=== PATIENT | male | born 1975 | race Two or more races ===

== ENCOUNTER 2019-06-03 09:02 | Inpatient (IN) | payer BC, OTHER ==
[~2019-06-03] VITALS: Ht 182.9 cm; Wt 127.2 kg
[2019-06-03 10:10] LABS: Urine Bacteria NONE SEEN /hpf (None Seen); Urine Blood TRACE /uL (Negative); Urine Mucus FEW (None Seen); Urine Specific Gravity 1.024 (1.001-1.035); Urine WBC 2 /hpf (0 - 3)
[2019-06-03 10:12] LABS: Basophils # (auto) 0 uL; Basophils % (auto) 0.5 % (0.0-2.0); Eosinophils # (auto) 0.3 uL; Eosinophils % (auto) 4.4 % (0.0-7.0); Hematocrit 46.8 % (41.0-53.0); Hemoglobin 15.7 g/dL (13.5-17.5); Lymphocytes # (auto) 1.1 uL; Lymphocytes % (auto) 15.1 % (10.0-50.0); Mean Corpuscular Hemoglobin 27.2 pg (28.0-32.0); Mean Corpuscular Hgb Conc. 33.4 g/dL (32.0-36.0); Mean Corpuscular Volume 81.4 fL (80.0-100.0); Monocytes # (auto) 0.7 uL; Monocytes % (auto) 8.8 % (0.0-12.0); Neutrophils # (auto) 5.3 uL; Neutrophils % (auto) 71.2 % (37.0-80.0); Nucleated Red Blood Cells % 0.1 %; Platelet Count (auto) 307 10^3/uL (140-450); Red Blood Cells 5.76 10^6/uL (4.5-5.90); White Blood Cell 7.5 10^3/uL (4.4-10.8)
[2019-06-03 10:34] LABS: Albumin 3.9 g/dL (3.4-5.0); BUN/Creatinine Ratio 9.5; Calcium 8.8 mg/dL (8.5-10.1); Potassium 3.6 mmol/L (3.5-5.1)
[2019-06-03 10:37] LABS: Bilirubin, Total 0.6 mg/dL (0.2-1.0); Total Protein 8.2 g/dL (6.4-8.2)
[2019-06-03] MEDS ORDERED: PIPERACILLIN-TAZOB 3.375GM 100 ML IV ONE (12:15)
[2019-06-03] MEDS ORDERED: VANCOMYCIN 1GM/250ML 250 ML IV ONE (12:15)
[2019-06-03] MEDS ORDERED: ACETAMINOPHEN 325 MG TAB PO PRN (15:00)
[2019-06-03] MEDS ORDERED: MORPHINE SULF INJ 2 MG/ML SYRINGE 1ML IV PRN ×2 (15:00)
[2019-06-03] MEDS ORDERED: HYDROcodone-ACET 5/325MG TAB PO PRN (15:00)
[2019-06-03] MEDS ORDERED: NITROGLYCERIN 0.4 MG SL TAB SL PRN (15:00)
[2019-06-03] MEDS ORDERED: ONDANSETRON HCL 4 MG/2 ML VIAL IV PRN (15:00)
[2019-06-03] MEDS: SODIUM CHLORIDE 0.9% 1,000 ML IV SCH (15:11)
--- NOTE | 2019-06-03 15:58 | NUR ---
MS admit from ER BETZAIDA TORRES admitted to tele/MS after SBAR received. Patient oriented to Lisa Orozco primary RN, unit, room, bed, and unit policies regarding patient care and visiting hours. Patient weighed by bed scale and encouraged to call if they need something. All questions and concerns addressed, patient verbalized understanding. Instructed patient on POC, fall precautions and to call for assistance. Patient verbalized understanding. Fall precautions in place with bed in lowest locked position, x2 side rails up and call light within reach. Will continue to monitor q1hr & PRN.
--- NOTE | 2019-06-03 16:20 | NUR ---
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 Patient stated "It's for work." Patient advised to send the wire bound box machine operator home as soon as possible or it will need to be taken from the bedside. Patient verbalized understanding. Patient stated "I will have my take it when she comes this evening to visit."
[2019-06-03 17:00] VITALS: BP 113/70
[2019-06-03] MEDS: PIPERACILLIN-TAZOB 3.375GM 100 ML IV SCH (17:25)
[2019-06-03 17:37] VITALS: BP 113/70
--- NOTE | 2019-06-03 18:43 | NUR ---
Closing note patient resting in bed with even and unlabored respirations, no distress noted. Fall precautions in place with bed in lowest locked position with x2 side rails up and call light within reach.
--- NOTE | 2019-06-03 19:14 | NUR ---
Care endorsed to HUGO Andersen.
[2019-06-03] MEDS: metroNIDAZOLE 500MG/100ML 100 ML IV SCH (21:32)
[2019-06-03 21:41] VITALS: BP 107/65
[2019-06-04] MEDS: PIPERACILLIN-TAZOB 3.375GM 100 ML IV SCH ×3 (00:15→11:50)
[2019-06-04] MEDS: SODIUM CHLORIDE 0.9% 1,000 ML IV SCH ×2 (01:00→11:00)
[2019-06-04] MEDS: metroNIDAZOLE 500MG/100ML 100 ML IV SCH ×2 (04:33→15:33)
[2019-06-04 05:05] VITALS: BP 107/56
[2019-06-04 06:29] LABS: Basophils # (auto) 0 uL; Basophils % (auto) 0.4 % (0.0-2.0); Eosinophils # (auto) 0.5 uL; Hemoglobin 14.6 g/dL (13.5-17.5); Monocytes # (auto) 0.5 uL; Red Cell Distribution Width 14.1 % (11.8-14.3)
[2019-06-04 06:33] LABS: Eosinophils % (auto) 8.4 % (0.0-7.0); Hematocrit 43.8 % (41.0-53.0); Lymphocytes % (auto) 17.7 % (10.0-50.0); Mean Corpuscular Hemoglobin 27.4 pg (28.0-32.0); Mean Corpuscular Hgb Conc. 33.5 g/dL (32.0-36.0); Mean Corpuscular Volume 81.7 fL (80.0-100.0); Monocytes % (auto) 9.5 % (0.0-12.0); Neutrophils # (auto) 3.5 uL; Platelet Count (auto) 282 10^3/uL (140-450); Red Blood Cells 5.35 10^6/uL (4.5-5.90); White Blood Cell 5.5 10^3/uL (4.4-10.8)
[2019-06-04 06:52] LABS: Albumin 3.4 g/dL (3.4-5.0); BUN/Creatinine Ratio 8.7; Calcium 8.7 mg/dL (8.5-10.1); Magnesium 2.4 mg/dL (1.6-2.6); Potassium 3.7 mmol/L (3.5-5.1)
[2019-06-04 06:54] LABS: Bilirubin, Total 0.5 mg/dL (0.2-1.0); Total Protein 7.2 g/dL (6.4-8.2)
--- NOTE | 2019-06-04 07:53 | NUR ---
RECEIVED REPORT AND ASSUMED CARE OF PT. A/OX4. DENIED S/S ACUTE DISTRESS. UPDATE PT WITH POC. BED AT LOWEST POSITION. CALL LIGHT AND BELONGINGS WITHIN REACH. WILL CONT TO MONITOR.
[2019-06-04 09:00] VITALS: BP 94/53
[2019-06-04 13:00] VITALS: BP 114/70
--- NOTE | 2019-06-04 17:03 | NUR ---
DR BAILEY CALLED AND SAID HE HAD SPOKEN WITH DR WU AND PER DR WU IT IS OKAY TO DC PT HOME AND PT SHOULD FOLLOW WITH HIM IN 1 WEEK. PT A/OX4. DENIED S/S ACUTE DISTRESS. DC INSTRUCTIONS GIVEN AND PT VERBALIZED UNDERSTANDING. IV DC. EMPHASIZED NEED FOR F/U APPOINTMENT. PT LEFT UNIT IN STABLE CONDITION.
[2019-06-04 17:18] VITALS: BP 115/73
== END 2019-06-04 17:00 | disposition home or self-care (01) | DRG 392 ==
LOC: ER 09:02 → OVERFLOW 09:03 → WEST WING 16:22
PROVIDERS: ADMIT Internal Medicine; ATTEND Internal Medicine
DX: K57.32 Diverticulitis of large intestine without perforation or abscess without bleeding (principal); F17.210 Nicotine dependence, cigarettes, uncomplicated; Z71.6 Tobacco abuse counseling
CPT/HCPCS: 36415; 74176; 80053; 81001; 83605; 83690; 83735; 85025; 87040; 96365; 96367; G0378; J2543; J3490